=== PATIENT | female | born 1950 | race African-American/Black ===

== ENCOUNTER 2018-08-03 00:18 | Emergency (ER) | payer SELFPAY ==
[~2018-08-03] VITALS: Ht 152.4 cm; Wt 85.0 kg
[2018-08-03] MEDS ORDERED: ACETAMINOPHEN 325MG TABLET PO ONE (03:15)
[2018-08-03] MEDS ORDERED: TETRACAINE 0.5% OPHTH DROPS 4ML BOTHEYE ONE (03:15)
[2018-08-03] MEDS ORDERED: FLUORESCEIN SODIUM 1MG/STRIP BOTHEYE ONE (03:15)
[2018-08-03 03:38] VITALS: BP 127/75
== END 2018-08-03 03:39 | disposition home or self-care (01) ==
LOC: ER 00:18
DX: T59.3X3A Toxic effect of lacrimogenic gas, assault, initial encounter (principal); H57.13 Ocular pain, bilateral; Y93.89 Activity, other specified; Y92.89 Other specified places as the place of occurrence of the external cause
CPT/HCPCS: 99283